=== PATIENT | male | born 1950 | race Caucasian/White ===

== ENCOUNTER 2017-08-10 08:48 | Day surgery (SDC) | payer MEDICARE, OTHER ==
[~2017-08-10 08:48] MED LIST: Lidocaine 1% with EPINEPHrine 1:100,000 50 ML MDV ONE
[2017-08-10] MEDS ORDERED: Dextrose 5%-Lactated Ringers 1,000 ML IV SCH (09:30)
[2017-08-10] MEDS ORDERED: Propofol 200 MG/20 ML SDV ONE (10:49)
[2017-08-10] MEDS ORDERED: Midazolam 1 MG/ML 2 ML SDV ONE (10:49)
[2017-08-10] MEDS ORDERED: fentaNYL 100 MCG/2 ML SDV ONE (10:49)
[2017-08-10] MEDS ORDERED: Lidocaine 0.5% 50 ML SDV ONE (10:50)
--- NOTE | 2017-08-11 07:47 | OR ---
DATE OF PROCEDURE: 08/10/2017 PREOPERATIVE DIAGNOSIS: Bilateral carpal tunnel syndrome, left greater than right. POSTOPERATIVE DIAGNOSIS: Bilateral carpal tunnel syndrome, left greater than right. PROCEDURE: Left carpal tunnel release. SOAKING PIT OPERATOR: Zain Harper MS-3. ANESTHESIA: Left Juan F block. INDICATION: This 66-year-old white male, four years ago underwent bilateral upper extremity nerve conduction studies which showed bilateral carpal tunnel syndrome; on the left it was considered severe; on the right it was considered moderate range in severity. He is right- handed. 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 He then had symptoms worse on the left. He has used the splint and this has not really helped. He agrees now to undergo a left carpal tunnel release; at a later date possibly, he will undergo the right. I counseled him for surgery including risks and alternatives, and he gave his informed consent to proceed. DESCRIPTION OF PROCEDURE: After adequate left upper extremity Juan F block anesthesia was obtained, the left upper extremity was prepped and draped in usual sterile fashion. A marking pen was used to jose elias the planned incision. A time-out was held. The incision was then made which coursed proximally on the ulnar side of the thenar crease back to the distal wrist flexion crease, where on the line with the ring finger, the incision coursed obliquely, ulnarly. The incision was carried deep, bluntly to the transverse carpal ligament. The transverse carpal ligament was divided along its entire course staying at its most ulnar aspect. All looked well. The incision was irrigated and dried. The incision was then closed with a running stitch of 5-0 Prolene. A bulky hand dressing was applied. The tourniquet was cycled down. The patient was taken to the recovery room in good condition having tolerated the procedure well. Ajay Powell MD /[id number]
== END 2017-08-10 14:10 | disposition home or self-care (01) ==
LOC: JP.SDS 08:48
PROVIDERS: ATTEND Surgery
DX: G56.03 Carpal tunnel syndrome, bilateral upper limbs (principal); K21.9 Gastro-esophageal reflux disease without esophagitis
CPT/HCPCS: 93005; J2250; J2704; J3010; J7042

== ENCOUNTER 2018-10-17 23:44 | Emergency (ER) | payer MEDICARE, OTHER ==
[2018-10-18] MEDS: Lidocaine 2% Jelly 10 ML Urojet MUCMEM ONE (00:07)
--- NOTE | 2018-10-18 00:27 | EDM.PDOC ---
ED HPI GENERAL MEDICAL PROBLEM - General Chief Complaint: Genitourinary Problem Stated Complaint: TROUBLE URINATING Time Seen by Provider: 10/18/18 00:15 Source of Information: Reports: Patient, Old Records, RN History Limitations: Reports: No Limitations - History of Present Illness INITIAL COMMENTS - FREE TEXT/NARRATIVE: 67 yo male with progressive hematuria over the past several days being worked up by Dr. Gil presents now with urinary retention. Is scheduled for a renal US in the morning here. Onset: Gradual Onset Date: 10/12/18 Duration: Day(s):, Getting Worse Location: Reports: Pelvis ( tract) Quality: Reports: Pressure (tonight due to retention) Severity: Severe Improves with: Reports: Other (urination) Worsens with: Reports: Other (not urinating) Context: Reports: Other (see HPI) Associated Symptoms: Reports: Other (gross hematuria) Treatments IT TECHNICAL SUPPORT SPECIALIST: Reports: Other (see below) Other Treatments IT TECHNICAL SUPPORT SPECIALIST: none Lower Abdomen Pain Score (Numeric/FACES): 8 - Related Data Allergies Allergy/AdvReac Type Severity Reaction Status Date / Time No Known Allergies Allergy Verified 10/17/18 23:56 Home Meds: Home Meds Sildenafil [Viagra] 100 mg PO ASDIRECTED 08/09/17 [History] Ascorbate Calcium [Vitamin C] 1 tab PO DAILY 06/29/18 [History] Multivitamin [Daily Roosevelt] 1 tab PO DAILY 06/29/18 [History] Aspirin [Ecotrin] 81 mg PO DAILY 10/17/18 [History] Clopidogrel Bisulfate [Clopidogrel] 75 mg PO DAILY 10/17/18 [History] Metoprolol Succinate [Toprol XL 50mg] 50 mg PO DAILY 10/17/18 [History] atorvaSTATin Calcium [Atorvastatin Calcium] 40 mg PO BEDTIME 10/17/18 [History] Past Medical History HEENT History: Reports: Impaired Vision Cardiovascular History: Reports: Bypass Gastrointestinal History: Reports: None Musculoskeletal History: Reports: Fracture, Other (See Below) Other Musculoskeletal History: Jesus carpal tunnel sydrome Neurological History: Reports: Concussion Endocrine/Metabolic History: Reports: Obesity/BMI 30+ - Infectious Disease History Infectious Disease History: Reports: Chicken Pox - Past Surgical History HEENT Surgical History: Reports: None Cardiovascular Surgical History: Reports: Coronary Artery Bypass, Other (See Below) Other Cardiovascular Surgeries/Procedures: CABG x 5 GI Surgical History: Reports: Colonoscopy Endocrine Surgical History: Reports: None Neurological Surgical History: Reports: None Musculoskeletal Surgical History: Reports: Other (See Below) Other Musculoskeletal Surgeries/Procedures:: Right trigger finger release Social & Family History - Tobacco Use Smoking Status *Q: Never Smoker Second Hand Smoke Exposure: No - Caffeine Use Caffeine Use: Reports: Coffee - Recreational Drug Use Recreational Drug Use: No ED ROS GENERAL - Review of Systems Review Of Systems: See Below Constitutional: Reports: No Symptoms HEENT: Reports: No Symptoms Respiratory: Reports: No Symptoms Cardiovascular: Reports: No Symptoms Endocrine: Reports: No Symptoms GI/Abdominal: Reports: No Symptoms : Reports: Hematuria, Urinary Retention Musculoskeletal: Reports: No Symptoms Skin: Reports: No Symptoms Neurological: Reports: No Symptoms ED EXAM, RENAL/ - Physical Exam Exam: See Below Exam Limited By: No Limitations General Appearance: Alert, WD/WN, No Apparent Distress Eye Exam: Bilateral Eye: Normal Inspection Ears: Normal Canal, Hearing Grossly Normal Nose: Normal Inspection, No Blood Throat/Mouth: Normal Inspection, Normal Lips, Normal Voice, No Airway Compromise Head: Atraumatic, Normocephalic Neck: Normal Inspection Respiratory/Chest: No Respiratory Distress, No Accessory Muscle Use Cardiovascular: Regular Rate, Rhythm GI/Abdominal: Normal Bowel Sounds, Soft, Non-Tender, No Distention (Male) Exam: Other (bladder scan just under 500 ml, relief after catheterization. Urine looks like gross blood. ) Back Exam: Normal Inspection. No: CVA Tenderness (R), CVA Tenderness (L) Extremities: Normal Inspection, Normal Range of Motion, Non-Tender, No Pedal Edema Neurological: Alert, Oriented, CN II-XII Intact, Normal Cognition, No Motor/ Sensory Deficits Psychiatric: Normal Affect, Normal Mood Skin Exam: Warm, Dry, Intact, Normal Color, No Rash Lymphatic: No Adenopathy Course - Vital Signs Last Recorded V/S: Last Vital Signs Temp 35.9 C 10/17/18 23:50 Pulse 81 10/18/18 00:28 Resp 14 10/18/18 00:28 BP 140/96 H 10/18/18 00:28 Pulse Ox 98 10/18/18 00:28 - Orders/Labs/Meds Orders: Active Orders 24 hr Category Date Time Status Villarreal Catheter Insertion [Insert Urinary Catheter] [OM. Care 10/18/18 00:15 Ordered PC] Q24H Urinary Catheter Assessment [RC] ASDIRECTED Care 10/18/18 00:04 Active Meds: Medications Discontinued Medications Generic Name Dose Route Start Last Admin Trade Name Isidra PRN Reason Stop Dose Admin Lidocaine HCl 10 ml 10/18/18 00:04 10/18/18 00:07 Xylocaine 2% Jelly MUCMEM 10/18/18 00:05 10 ml ONETIME ONE Administration Departure - Departure Time of Disposition: 00:32 Disposition: Home, Self-Care 01 Condition: Good Clinical Impression: Urinary retention, Gross hematuria - Discharge Information *PRESCRIPTION DRUG MONITORING PROGRAM REVIEWED*: No *COPY OF PRESCRIPTION DRUG MONITORING REPORT IN PATIENT YANICK: No Instructions: Indwelling Urinary Catheter Insertion Referrals: PCP,None [Primary Care Provider] - Forms: ED Department Discharge Additional Instructions: Keep your appt for tomorrow morning. Drink ample fluids. Return if your catheter plugs tonight. - My Orders Last 24 Hours: My Active Orders 10/18/18 00:04 Urinary Catheter Assessment [RC] ASDIRECTED 10/18/18 00:15 Villarreal Catheter Insertion [Insert Urinary Catheter] [OM.PC] Q24H - Assessment/Plan Last 24 Hours: My Active Orders 10/18/18 00:04 Urinary Catheter Assessment [RC] ASDIRECTED 10/18/18 00:15 Villarreal Catheter Insertion [Insert Urinary Catheter] [OM.PC] Q24H
== END 2018-10-18 00:58 | disposition home or self-care (01) ==
LOC: JP.ED 23:44
DX: R31.0 Gross hematuria (principal); R33.9 Retention of urine, unspecified; Z79.899 Other long term (current) drug therapy
CPT/HCPCS: 51702; 51798; 99283

== ENCOUNTER 2018-10-18 08:40 | Emergency (ER) | payer MEDICARE, OTHER ==
--- NOTE | 2018-10-18 09:52 | EDM.PDOC ---
ED HPI GENERAL MEDICAL PROBLEM - General Chief Complaint: Genitourinary Problem Stated Complaint: BLOCKED CATHETER Time Seen by Provider: 10/18/18 09:00 Source of Information: Reports: Patient, Family History Limitations: Reports: No Limitations - History of Present Illness INITIAL COMMENTS - FREE TEXT/NARRATIVE: 67-year-old male who is been struggling with hematuria for the last week. He is on Plavix and aspirin, has had no trauma. Baseline labs were drawn on Tuesday and were normal, he saw his primary provider to set up a renal ultrasound which he had this morning but developed outflow obstruction because of the blood clots. Last night he developed outflow obstruction and a Villarreal was placed, this morning he redeveloped obstruction with Villarreal in. Associated Symptoms: Reports: No Other Symptoms Pelvic Pain Score (Numeric/FACES): 2 - Related Data Allergies Allergy/AdvReac Type Severity Reaction Status Date / Time No Known Allergies Allergy Verified 10/17/18 23:56 Home Meds: Home Meds Sildenafil [Viagra] 100 mg PO ASDIRECTED 08/09/17 [History] Ascorbate Calcium [Vitamin C] 1 tab PO DAILY 06/29/18 [History] Multivitamin [Daily Roosevelt] 1 tab PO DAILY 06/29/18 [History] Aspirin [Ecotrin] 81 mg PO DAILY 10/17/18 [History] Clopidogrel Bisulfate [Clopidogrel] 75 mg PO DAILY 10/17/18 [History] Metoprolol Succinate [Toprol XL 50mg] 50 mg PO DAILY 10/17/18 [History] atorvaSTATin Calcium [Atorvastatin Calcium] 40 mg PO BEDTIME 10/17/18 [History] Past Medical History HEENT History: Reports: Impaired Vision Cardiovascular History: Reports: Bypass Gastrointestinal History: Reports: None Musculoskeletal History: Reports: Fracture, Other (See Below) Other Musculoskeletal History: Jesus carpal tunnel sydrome Neurological History: Reports: Concussion Endocrine/Metabolic History: Reports: Obesity/BMI 30+ - Infectious Disease History Infectious Disease History: Reports: Chicken Pox - Past Surgical History HEENT Surgical History: Reports: None Cardiovascular Surgical History: Reports: Coronary Artery Bypass, Other (See Below) Other Cardiovascular Surgeries/Procedures: CABG x 5 GI Surgical History: Reports: Colonoscopy Endocrine Surgical History: Reports: None Neurological Surgical History: Reports: None Musculoskeletal Surgical History: Reports: Other (See Below) Other Musculoskeletal Surgeries/Procedures:: Right trigger finger release Social & Family History - Tobacco Use Smoking Status *Q: Never Smoker - Caffeine Use Caffeine Use: Reports: Coffee - Recreational Drug Use Recreational Drug Use: No ED ROS GENERAL - Review of Systems Review Of Systems: See Below Constitutional: Denies: Fever, Chills HEENT: Reports: No Symptoms Respiratory: Denies: Shortness of Breath Cardiovascular: Reports: Other (On Plavix and aspirin from a bypass surgery in July). Denies: Chest Pain GI/Abdominal: Reports: Abdominal Pain. Denies: Nausea, Vomiting : Reports: Hematuria, Urinary Retention Musculoskeletal: Reports: No Symptoms Skin: Reports: No Symptoms ED EXAM, RENAL/ - Physical Exam Exam: See Below Exam Limited By: No Limitations General Appearance: Alert, Mild Distress, Other (Initially very uncomfortable, once his Villarreal was flushed and bladder empty his symptoms resolved) Respiratory/Chest: No Respiratory Distress, Lungs Clear Cardiovascular: Regular Rate, Rhythm GI/Abdominal: Soft, Non-Tender (Abdomen was nontender after the Villarreal obstruction was removed) (Male) Exam: Other (Significant hematuria present in the Villarreal bag) Neurological: Alert, Oriented Course - Vital Signs Last Recorded V/S: Last Vital Signs Temp 97.5 F 10/18/18 09:08 Pulse 79 10/18/18 09:08 Resp 16 10/18/18 09:08 BP 102/72 10/18/18 09:08 Pulse Ox 99 10/18/18 09:08 - Orders/Labs/Meds Labs: Laboratory Tests 10/18/18 10/18/18 Range/Units 10:10 10:10 WBC 8.2 (4.5-11.0) K/uL RBC 4.51 (4.30-5.90) M/uL Hgb 12.9 (12.0-15.0) g/dL Hct 40.1 (40.0-54.0) % MCV 89 (80-98) fL MCH 29 (27-31) pg MCHC 32 (32-36) % Plt Count 252 (150-400) K/uL Neut % (Auto) 76 H (36-66) % Lymph % (Auto) 12 L (24-44) % [place]estone % (Auto) 9 H (2-6) % Eos % (Auto) 2 (2-4) % Baso % (Auto) 0 (0-1) % Sodium 138 L (140-148) mmol/L Potassium 4.3 (3.6-5.2) mmol/L Chloride 104 (100-108) mmol/L Carbon Dioxide 25 (21-32) mmol/L Anion Gap 13.3 (5.0-14.0) mmol/L BUN 16 (7-18) mg/dL Creatinine 1.0 (0.8-1.3) mg/dL Est Cr Clr Drug Dosing 64.69 mL/min Estimated GFR (MDRD) > 60 (>60) Glucose 104 (74-106) mg/dL Calcium 9.4 (8.5-10.1) mg/dL Meds: Medications Discontinued Medications Generic Name Dose Route Start Last Admin Trade Name Freq PRN Reason Stop Dose Admin Sodium Chloride 81 mls @ 3 mls/sec 10/18/18 10:06 10/18/18 10:39 Normal Saline IV 10/18/18 10:07 3 mls/sec ONETIME ONE Administration Iopamidol 135 ml 10/18/18 10:15 10/18/18 10:39 Isovue-300 (61%) IV 135 ml . DIRECTED JUN Administration Sodium Chloride 10 ml 10/18/18 10:06 10/18/18 10:39 Saline Flush FLUSH 10 ml ONETIME PRN Administration PER RADIOLOGY PROTOCOL - Re-Assessments/Exams Free Text/Narrative Re-Assessment/Exam: 10/18/18 10:04 After discussing the situation with urology, they recommended a CT with and without contrast as his renal ultrasound was normal. Following the CT scan he' ll be scheduled with urology within the next week. 10/18/18 10:55 CBC and BMP were ordered, reassuring, hemoglobin is normal. Creatinine is normal. CT was done, the patient remained asymptomatic and nonobstructive. He will get a call from urology for an appointment follow-up and return if he becomes obstructed. Departure - Departure Time of Disposition: 11:13 Disposition: Home, Self-Care 01 Clinical Impression: Retention, urine Hematuria Qualifiers: Hematuria type: gross Qualified Code(s): R31.0 - Gross hematuria - Discharge Information Instructions: Hematuria, Adult Referrals: Dontrell Gil MD [Primary Care Provider] - Forms: ED Department Discharge Care Plan Goals: You should be getting a call from urology regarding an appointment in the next week. Return if recurring obstruction and unable to flush open the Villarreal, or you develop other concerns.
[2018-10-18] MEDS ORDERED: Sodium Chloride 0.9% 10 ML Syringe FLUSH PRN (10:06)
[2018-10-18] MEDS ORDERED: Iopamidol 612 MG/ML 150 ML Bottle IV SCH (10:15)
--- NOTE | 2018-10-18 11:58 | CRLCT ---
INDICATION: Hematuria. TECHNIQUE: CT abdomen and pelvis urogram without and with 135 cc Isovue 350 IV contrast. Contrast images were obtained in the nephrographic and delayed phases. COMPARISON: None. FINDINGS: KIDNEYS: The unenhanced images demonstrate no kidney or ureteral stones. The kidneys are normal in caliber and demonstrate normal uptake and excretion of IV contrast. Few small cysts are present. No suspicious mass. The renal collecting systems and ureters are symmetrical, normal in caliber, and without evidence of mass or filling defect. URINARY BLADDER: Villarreal catheter is present in the bladder. A large amount of irregular relatively dense soft tissue in the bladder lumen consistent with blood clots. Prostate gland is enlarged. OTHER: GI tract is normal in caliber and appearance. The liver is normal in caliber and attenuation. Spleen, pancreas, and adrenal glands are normal. No mass or adenopathy. IMPRESSION: 1. Large blood clots are present in the lumen of the urinary bladder. There is prostate gland enlargement. Kidneys are unremarkable. No other finding to explain hematuria. 2. No other acute or significant findings. Dictated by Trenton Vyas MD @ 10/18/2018 11:56:07 AM Please note that all CT scans at this facility use dose modulation, iterative reconstruction, and/or weight-based dosing when appropriate to reduce radiation dose to as low as reasonably achievable. Dictated by: Trenton Vyas MD @ 10/18/2018 11:56:13 (Electronically Signed)
== END 2018-10-18 11:13 | disposition home or self-care (01) ==
LOC: JP.ED 08:40
DX: R31.0 Gross hematuria (principal); R33.9 Retention of urine, unspecified; Z79.899 Other long term (current) drug therapy; Z79.82 Long term (current) use of aspirin
CPT/HCPCS: 36415; 51702; 51798; 74178; 80048; 85025; 99283; J7030

== ENCOUNTER 2019-09-20 05:59 | Day surgery (SDC) | payer MEDICARE, OTHER ==
[2019-09-20] MEDS ORDERED: Lidocaine 1% with EPINEPHrine 1:100,000 50 ML MDV ONE (06:56)
[2019-09-20] MEDS ORDERED: Dextrose 5%-Lactated Ringers 1,000 ML IV SCH (07:00)
[2019-09-20] MEDS ORDERED: Midazolam 1 MG/ML 2 ML SDV ONE (07:02)
[2019-09-20] MEDS ORDERED: Propofol 200 MG/20 ML SDV ONE (07:02)
[2019-09-20] MEDS ORDERED: fentaNYL 100 MCG/2 ML SDV ONE (07:02)
[2019-09-20] MEDS ORDERED: Lidocaine 0.5% 50 ML SDV ONE (07:05)
[2019-09-20] MEDS ORDERED: ceFAZolin 2 GM in Premix Bag 1 BAG IV ONE (07:15)
[2019-09-20] MEDS ORDERED: Ketorolac 60 MG/2 ML SDV ONE (08:38)
--- NOTE | 2019-09-24 10:45 | OR ---
DATE OF PROCEDURE: 09/20/2019 SURGEON: Navdeep Fitzpatrick MD PREOPERATIVE DIAGNOSIS: Right carpal tunnel syndrome. POSTOPERATIVE DIAGNOSES: 1. Right carpal tunnel syndrome. 2. Subfascial lipoma of right wrist. OPERATIVE PROCEDURES: 1. Right carpal tunnel release (64206). 2. Excision of subfascial lipoma, right wrist (99381). ANESTHESIA: IV block plus sedation. INDICATIONS FOR PROCEDURE: A 68-year-old male presenting with a clinically evident right carpal tunnel syndrome and previously had a carpal tunnel release on the left side with good results. Plan is to proceed with a carpal tunnel release. Potential risks including bleeding, infection, injury to the median nerve and/or its branches, possible incomplete relief of symptoms were all reviewed, and the patient wishes to proceed. DETAILS OF PROCEDURE: The patient was taken to the operating room and after IV sedation was administered and a tourniquet applied to the right arm, right forearm and hand were prepped and draped. A standard carpal tunnel incision was made and carried down through the skin and subcutaneous tissue, and the transverse carpal ligament was then divided for its entire length including extending into the palm of the hand. This was quite thickened and did retract under considerable tension upon its division. The patient had a 1 cm lipoma located within the carpal tunnel as well which was excised to facilitate offloading radial pressure on the nerve. Incision was then closed with some 4-0 Vicryl subdermal stitch as well as a 5- 0 Prolene skin stitch. Dressing was applied. The patient was taken to the recovery room in satisfactory condition. Navdeep Fitzpatrick MD /[id number]
== END 2019-09-20 10:30 | disposition home or self-care (01) ==
LOC: JP.SDS 05:59
PROVIDERS: ATTEND Surgery
DX: G56.01 Carpal tunnel syndrome, right upper limb (principal); D17.79 Benign lipomatous neoplasm of other sites
CPT/HCPCS: 88304; J0690; J1885; J2001; J2250; J2704; J3010; J7121

== ENCOUNTER 2021-01-29 08:28 | Day surgery (SDC) | payer MEDICARE, OTHER ==
[2021-01-29] MEDS ORDERED: Sodium Chloride 0.9% 1,000 ML IV SCH (09:00)
[2021-01-29] MEDS ORDERED: fentaNYL 100 MCG/2 ML SDV ONE (10:21)
[2021-01-29] MEDS ORDERED: Propofol 200 MG/20 ML SDV ONE (10:21)
[2021-01-29] MEDS ORDERED: Midazolam 1 MG/ML 2 ML SDV ONE (10:22)
--- NOTE | 2021-01-29 17:46 | OR ---
DATE OF PROCEDURE: 01/29/2021 SURGEON: Lake Duffy MD PROCEDURE: Colonoscopy. FINDINGS: 1. Transverse colon polyp, approximately 1 cm, completely removed using hot snare wire device. 2. Descending colon polyp #1, approximately 5 mm, completely removed using cold biopsy forceps. 3. Descending colon polyp #2, approximately 5 mm, completely removed using cold biopsy forceps. COMPLICATIONS: None. CVT RN: None. ANESTHESIA: MAC. PREOPERATIVE DIAGNOSIS: Screening colonoscopy. POSTOPERATIVE DIAGNOSIS: Screening colonoscopy. RISKS: Risks, benefits, alternatives, and limitations including but not limited to infection, bleeding, perforation, false positives and false negatives were explained to the patient and he wished to proceed. PROCEDURE IN DETAIL: The patient was placed in left lateral decubitus position. Digital rectal exam performed without abnormality. Scope was introduced and advanced atraumatically to the ileocecal valve. A photo was taken of appendiceal orifice. The scope was brought back to the ascending, transverse, descending colon, and retroflexed. No evidence of old or new blood. No masses. No abnormalities on retroflexion. The polyps were all removed in the aforementioned fashion without any abnormal bleeding after removal. Greater than 8 minutes spent removing the scope. The prep was acceptable, approximately 90% of luminal surface could be seen. Lake Duffy MD /[id number]
== END 2021-01-29 11:55 | disposition home or self-care (01) ==
LOC: JP.SDS 08:28
PROVIDERS: ATTEND Surgery
DX: Z12.11 Encounter for screening for malignant neoplasm of colon (principal); D12.3 Benign neoplasm of transverse colon; D12.4 Benign neoplasm of descending colon; I25.10 Atherosclerotic heart disease of native coronary artery without angina pectoris; Z95.1 Presence of aortocoronary bypass graft
CPT/HCPCS: 45380; 45385; J2250; J2704; J3010; J7030; 88305